=== PATIENT | female | born 1955 | race Caucasian/White ===

== ENCOUNTER 2016-11-16 08:31 | Emergency (ER) | payer OTHER ==
[2016-11-16] MEDS ORDERED: LIPI20TA PO (08:44)
[2016-11-16] MEDS ORDERED: blood pressure med (08:44)
[2016-11-16] MEDS ORDERED: DILT120C82 PO (08:52)
[2016-11-16] MEDS ORDERED: AMOX500C PO (09:01)
[2016-11-16 09:19] LABS: BASO % 0.3 % (0.0-1.0); EOS # 0.1 K/mm3 (0.0-0.50); EOS % 1.1 % (0.0-3.0); LARGE UNSTAINED CELL # 0.1 K/mm3 (0.0-0.4); LARGE UNSTAINED CELL % 2.2 % (0.0-4.0); LYMPH % 19.9 % (24.0-44.0); MEAN CORPUSCULAR HEMOGLOBIN 29.6 pg (27.0-33.0); MEAN CORPUSCULAR HGB CONC 35.4 g/dl (32.0-36.5); MEAN CORPUSCULAR VOLUME 83.5 fl (80.0-96.0); MONO # 0.2 K/mm3 (0.0-0.8); MONO % 3.8 % (0.0-5.0); NEUTROPHILS # 3.6 K/mm3 (1.8-7.7); NEUTROPHILS % 72.7 % (36.0-66.0); PLATELET COUNT, AUTOMATED 173 k/mm3 (150-450); RED CELL DISTRIBUTION WIDTH 13.5 % (11.5-14.5); WHITE BLOOD COUNT 4.9 K/mm3 (4.0-10.0)
--- NOTE | 2016-11-16 09:40 | REP ---
Portable chest, single AP view, the patient sitting, 09:24 a.m.: There are no comparisons. There are too small focal densities inferiorly in the left lung, costochondral cartilage artifact versus subsegmental atelectasis. The lung spence otherwise clear. Cardiac size is normal. The dago, mediastinum, and bony thorax are unremarkable. Signed by Ben Díaz MD 11/16/2016 09:32 A
[2016-11-16 09:45] LABS: ALT/SGPT 22 U/L (12-78); ANION GAP 9 MEQ/L (8-16); AST/SGOT 14 U/L (15-37); BLOOD UREA NITROGEN 10 MG/DL (7-18); CALCIUM LEVEL 7.8 MG/DL (8.5-10.1); CARBON DIOXIDE LEVEL 25 MEQ/L (21-32); CHLORIDE LEVEL 107 MEQ/L (98-107); CREATININE FOR GFR 0.75 MG/DL (0.55-1.02); GLOMERULAR FILTRATION RATE > 60.0 (>51); GLUCOSE, FASTING 126 MG/DL (70-105); POTASSIUM SERUM 3.3 MEQ/L (3.5-5.1); SODIUM LEVEL 141 MEQ/L (136-145)
[2016-11-16 09:46] LABS: ALBUMIN 3.9 GM/DL (3.2-5.2); ALBUMIN/GLOBULIN RATIO 1.15 (1.00-1.93); ALKALINE PHOSPHATASE 104 U/L (45-117); BILIRUBIN,DIRECT 0.1 MG/DL (0.0-0.2); BILIRUBIN,TOTAL 0.7 MG/DL (0.2-1.0); TOTAL PROTEIN 7.3 GM/DL (6.4-8.2)
[2016-11-16] MEDS ORDERED: ISOVUE-370 76% 100ML VIAL (Q9967) As Ordered ONE (10:04)
--- NOTE | 2016-11-16 10:42 | REP ---
CT of the chest with IV contrast , CT pulmonary artery angiography: There are no emboli in the pulmonary trunk or central pulmonary arteries. There are no emboli in the pulmonary artery lobe or segment branches. There are no infiltrates or effusions. The small focal zone of atelectasis at the inferior tip of the lingula. There are no masses. There is no adenopathy. The thoracic aorta is unremarkable. The cardiac size is normal. The visualized upper abdominal contents are unremarkable. There are surgical clips in the gallbladder fossa. Impression: There are no pulmonary emboli. There is a small focal zone of atelectasis at the inferior tip of the lingula. Otherwise, negative CT study of the chest. Signed by Ben Díaz MD 11/16/2016 10:33 A
[2016-11-16] MEDS ORDERED: POTASSIUM CHLORIDE 10 MEQ SR TABLET PO ONE (10:45)
[2016-11-16 11:41] VITALS: BP 157/75
--- NOTE | 2016-11-16 20:09 | ECGEPIP ---
Stationary ECG Study [facility] - ED Test Date: 2016-11-16 Pat Name: ARELIS SALTER Department: Room: - Gender: F [employer]: PATRICK : 1955 Requested By: Anthony Duran Order Number: [id number] Reading MD: Anthony Alex Measurements Intervals [place] Rate: 63 P: 55 KS: 150 QRS: 21 QRSD: 94 T: 41 QT: 430 QTc: 442 Interpretive Statements SINUS RHYTHM POSSIBLE LAE NO PRIORS Electronically Signed On 11-16-2016 20:09:15 EDT by Anthony Alex
== END 2016-11-16 11:47 | disposition home or self-care (01) ==
LOC: M ED 08:31 → EDBD 08:31 → M ED 11:47
DX: R07.89 Other chest pain (principal); E87.6 Hypokalemia; R20.2 Paresthesia of skin; Z87.891 Personal history of nicotine dependence
CPT/HCPCS: 36415; 71010; 71275; 80048; 80076; 82550; 82553; 83690; 85025; 93005; 93041; 94760; 99285; Q9967